=== PATIENT | female | born 1990 | race Caucasian/White ===

== ENCOUNTER 2023-08-01 11:07 | Outpatient (RCR) | payer OTHER, SELFPAY | END 2023-08-01 23:59 | disposition home or self-care (01) | LOC: RPT 11:07 | PROVIDERS: ATTENDING PHYSICIAN Obstetrics & Gynecology; FAMILY PHYSICIAN Family Medicine | DX: N39.41 Urge incontinence (principal); N39.3 Stress incontinence (female) (male); M62.89 Other specified disorders of muscle; R39.15 Urgency of urination; Z73.6 Limitation of activities due to disability; M54.9 Dorsalgia, unspecified | CPT/HCPCS: 97162; 97530 ==

== ENCOUNTER 2023-09-18 10:24 | Outpatient (RCR) | payer OTHER, SELFPAY | END 2023-09-18 23:59 | disposition home or self-care (01) | LOC: RPT 10:24 | PROVIDERS: ATTENDING PHYSICIAN Obstetrics & Gynecology; FAMILY PHYSICIAN Family Medicine | DX: N39.41 Urge incontinence (principal); N39.3 Stress incontinence (female) (male); M62.89 Other specified disorders of muscle; R39.15 Urgency of urination; M54.9 Dorsalgia, unspecified | CPT/HCPCS: 97014; 97110; 97112; 97140; 97530 ==

== ENCOUNTER → 2024-04-04 09:58 | Outpatient (REF) | payer OTHER, SELFPAY | LOC: REG 09:58 | PROVIDERS: ATTENDING PHYSICIAN Obstetrics & Gynecology | DX: Z34.82 Encounter for supervision of other normal pregnancy, second trimester (principal) | CPT/HCPCS: 36415; 86850; 86900; 86901; J2790 ==

== ENCOUNTER 2024-06-12 16:04 | Observation (INO) | payer OTHER, SELFPAY ==
[2024-06-12 16:21] VITALS: BP 133/57; BMI 36.8
[2024-06-12 16:56] LABS: % Basophils 0.3 % (0-2); % Eosinophils 3.6 % (0-6); % Immature Granulocytes 1.5 % (0-0.5); % Monocytes 9.7 % (1.7-9.3); % Neutrophils 68.9 % (42.2-75.2); Absolute Eosinophils 0.5 10^3/uL (0-0.7); Absolute Immature Granulocytes 0.2 10^3/uL (0-0.05); Absolute Lymphocytes 2.1 10^3/uL (1.2-3.4); Absolute Monocytes 1.3 10^3/uL (0.1-0.6); Absolute Neutrophils 9.1 10^3/uL (1.4-6.5); Hematocrit 27.6 % (37.0-47.0); Hemoglobin 9.5 g/dL (12.0-16.0); Mean Corp Hgb Conc. 34.4 g/dL (33.0-37.0); Mean Corpuscular Hgb 29.6 pg (27.0-31.0); Mean Platelet Volume 10.2 fL (7.4-10.4); Nucleated Red Blood Cells % 0 %; Platelet Count 211 10^3/uL (130-400); Red Blood Cell Count 3.21 10^6/uL (4.20-5.40); White Blood Cell Count 13.2 10^3/uL (4.8-10.8)
[2024-06-12 17:04] LABS: ALT (SGPT) 19 U/L (0-35); AST (SGOT) 21 U/L (14-36); Albumin 3.5 g/dl (3.5-5.0); Alkaline Phosphatase 126 U/L (38-126); Blood Urea Nitrogen 7 mg/dl (7-17); Calcium 9.6 mg/dl (8.4-10.2); Carbon Dioxide 23 mmol/L (22-30); Chloride 107 mmol/L (98-107); Estimated Creatinine Clearance > 125 ml/min; Glucose 89 mg/dl (70-99); Potassium 3.1 mmol/L (3.5-5.1); Sodium 137 mmol/L (135-145); Total Bilirubin 0.4 mg/dl (0.2-1.3); Total Protein 5.9 g/dl (6.3-8.2); Uric Acid 3.8 mg/dl (2.5-6.2); eGFR > 60.00
[2024-06-12 17:07] LABS: Urine Albumin Negative (Neg - Trace); Urine Bilirubin Negative (Negative); Urine Character Clear (Clear); Urine Color Yellow; Urine Glucose Negative (Negative); Urine Ketone Negative (Negative); Urine Leukocyte Negative (Negative); Urine Nitrite Negative (Negative); Urine Occult Blood Negative (Negative); Urine Specific Gravity 1.005 (<1.030); Urine Urobilinogen Negative (Neg - 1+)
[2024-06-12 17:16] LABS: Protein/creatinine Ratio 1.6; Urine Protein 16 mg/dl
== END 2024-06-12 19:08 | disposition home or self-care (01) ==
LOC: LDRP 16:04
PROVIDERS: Student in an Organized Health Care Education/Training Program; ADMITTING PHYSICIAN Obstetrics & Gynecology; FAMILY PHYSICIAN Family Medicine
DX: O26.893 Other specified pregnancy related conditions, third trimester (principal); R03.0 Elevated blood-pressure reading, without diagnosis of hypertension; Z3A.36 36 weeks gestation of pregnancy
CPT/HCPCS: 76815; 80053; 81003; 82570; 84156; 84550; 85025; 86850; 86870; 86900; 86901; G0378

== ENCOUNTER 2024-07-03 17:45 | Inpatient (IN) | payer OTHER, SELFPAY ==
[2024-07-03] MEDS: LR 1000 IV (18:00)
[2024-07-03 18:08] VITALS: BP 126/69; BMI 36.8
[2024-07-03 18:38] LABS: % Basophils 0.4 % (0-2); % Eosinophils 2.3 % (0-6); % Immature Granulocytes 1.1 % (0-0.5); % Lymphocytes 16.3 % (20.5-51.1); % Monocytes 8.9 % (1.7-9.3); Absolute Basophils 0.1 10^3/uL (0-0.2); Absolute Eosinophils 0.3 10^3/uL (0-0.7); Absolute Immature Granulocytes 0.2 10^3/uL (0-0.05); Absolute Lymphocytes 2.1 10^3/uL (1.2-3.4); Absolute Monocytes 1.2 10^3/uL (0.1-0.6); Absolute Neutrophils 9.3 10^3/uL (1.4-6.5); Hematocrit 30.7 % (37.0-47.0); Hemoglobin 10.6 g/dL (12.0-16.0); Mean Corp Hgb Conc. 34.5 g/dL (33.0-37.0); Mean Corpuscular Hgb 29.8 pg (27.0-31.0); Mean Corpuscular Volume 86.2 fL (81.0-99.0); Nucleated Red Blood Cells % 0 %; Platelet Count 236 10^3/uL (130-400); Red Blood Cell Count 3.56 10^6/uL (4.20-5.40); Red Cell Dist. Width 15.3 % (11.5-14.5); White Blood Cell Count 13.1 10^3/uL (4.8-10.8)
[2024-07-03 19:34] LABS: ALT (SGPT) 17 U/L (0-35); AST (SGOT) 21 U/L (14-36); Albumin 3.7 g/dl (3.5-5.0); Alkaline Phosphatase 153 U/L (38-126); Blood Urea Nitrogen 6 mg/dl (7-17); Calcium 9.5 mg/dl (8.4-10.2); Carbon Dioxide 21 mmol/L (22-30); Chloride 110 mmol/L (98-107); Estimated Creatinine Clearance > 125 ml/min; Glucose 86 mg/dl (70-99); Potassium 3.5 mmol/L (3.5-5.1); Sodium 138 mmol/L (135-145); Total Bilirubin 0.3 mg/dl (0.2-1.3); Total Protein 6.1 g/dl (6.3-8.2); eGFR > 60.00
[2024-07-03] MEDS: CYTOTEC 25 MICROGRAM VAG (20:05)
[2024-07-03 20:45] LABS: Protein/creatinine Ratio 0.6; Urine Protein 17 mg/dl
[2024-07-04] MEDS: CYTOTEC 50 MICROGRAM PO ×2 (00:24→05:25)
[2024-07-04] MEDS: LR 1000 IV ×2 (00:55→09:29)
[2024-07-04] MEDS: PENICILLIN 110 UNITS IV (00:55)
[2024-07-04] MEDS: STADOL 1 MG IV (03:30)
[2024-07-04] MEDS: PENICILLIN 55 UNITS IV ×4 (05:42→17:30)
[2024-07-04] MEDS: PITOCIN 30 UNITS/NSS 500 ML IV (09:29)
[2024-07-04] MEDS: CYTOTEC PO ×4 (09:37→22:14)
[2024-07-04] MEDS: FENTANYL/BUPIVACAINE 100 EPIDURAL (11:30)
[2024-07-04] MEDS: SUBLIMAZE 100 MCG EPIDURAL (11:30)
[2024-07-04] MEDS: ANCEF 10 IV (20:01)
[2024-07-04] MEDS: TYLENOL 1000 MG PO (20:01)
[2024-07-04] MEDS: BICITRA 30 ML PO (20:01)
[2024-07-04] MEDS: ZITHROMAX INFUSION 250 IV (20:03)
--- NOTE | 2024-07-04 22:07 | OR.RPT ---
Operative Report
Operative Report
Date of procedure: 07/04/2024
Preop diagnosis: IUP @39.1, brow presentation, PEC w/o SF
Postop diagnosis: same, intraop hemorrhage
Procedure: Primary low transverse section
Surgeon: Marybeth
Anesthesia: Epidural, Dr. Frost
QBL: 1350mL
Findings: viable female born at 2016, Apgars 7/8, normal appearing bilateral fallopian tubes and ovaries, extension inferior on the right side of the hysterotomy- hemostatic after repair. TXA given for increased bleeding from the hysterotomy
during repair.
Complications: none
Indication: Patient is a 34yo @39.1 who presented to Labor and Delivery with elevated blood pressures. Patient met criteria for preeclampsia without severe features. Her induction was started with Cytotec. She received two doses of Cytotec.
In the morning, patient was started on Pitocin. She was artificially ruptured for clear fluid around 1345. At 1945, patient was reporting increased pressure. She was examined and found to complete and +1 with brow presentation. Attempted to rotate
head without success. Recommendation was made to proceed with primary section. Risks, benefits and alternatives discussed including bleeding, infection, damage to surrounding structures and need for future operations. Consents signed.
Anesthesia notified of need to proceed with urgent . Ancef and azithromycin ordered for antibiotic prophylaxis.
Procedure: Patient was taken to the operating room where epidural anesthesia was bolused and found to be adequate. 2g of Ancef and 500mg of Azithromycin were given for antibiotic prophylaxis. The abdomen was prepped with ChloraPrep. The patient was
draped in the normal sterile fashion. She was placed in the dorsal supine position with a left lateral tilt. A Pfannenstiel incision was made with a 10 blade and carried down to the fascia with a scalpel. Hemostasis achieved with Bovie. The fascia
was incised and dissected laterally with Porras scissors. The superior aspect of the fascia was grasped with Chemo clamps. The underlying rectus fascia was sharply dissected with Porras scissors. In a similar fashion the inferior aspect of the fascia
was elevated with Chemo clamps and the rectus muscle was dissected off with Porras scissors. The rectus muscles were down the midline to the level of the pubic symphysis with manual dissection. The peritoneum was bluntly entered and
extended using manual traction.
Sterling retractor and bladder blade were placed revealing good visualization of the bladder. The vesicouterine peritoneum was identified. A thin lower uterine segment was noted. The lower uterine segment was incised with a scalpel. Clear fluid
and umbilical cord noted at entry. The uterine incision was extended bluntly with lateral and upward traction.
The fetus was in brow presentation. The head was elevated out of the pelvis with special attention paid to avoid using the uterine incision as a fulcrum. Gentle fundal pressure was applied once the head was brought to the incision and the head
delivered through the hysterotomy. The rest of the infant delivered without difficulty. Delayed cord clamping was performed. The was handed off to the surgical instrument repair specialist. IV oxytocin was started to facilitate uterine contractions. The placenta was
delivered with fundal massage and gentle downward traction. The uterus was exteriorized. Allis clamps were placed at the apices of the hysterotomy. The inside of the uterus was wiped with a lap sponge to assure complete removal of placental
membranes. Fundal massage was performed and uterus was firm. There was an extension inferior on the right side of the hysterotomy. The extension was repaired with 0 Vicryl in a running locked fashion. The uterine incision was closed with 0 Vicryl in
a running locked fashion. A horizontal imbricating stitch was done on the hysterotomy with 0 Vicryl. There was oozing along the hysterotomy and figure of eights were placed with 0 Vicryl to achieve hemostasis. Tranexamic acid was given for increased
bleeding along the hysterotomy. Bovie cautery was used on oozing areas of the serosa. The hysterotomy was inspected and noted to be hemostatic. The uterus was placed back in the abdomen. Blood clots and fluid were wiped out of the abdomen and pelvis
with moist laparotomy sponges. The hysterotomy was inspected again and was hemostatic.
The rectus muscles were inspected and were hemostatic. The fascial layer was closed in a running continuous fashion using 0 Vicryl. The subcutaneous tissue was copiously irrigated and any small bleeding vessels were cauterized with Bovie cautery.
The subcutaneous tissue was reapproximated in a running continuous fashion with 2-0 Plain. The skin was closed with 4-0 Vicryl in a subcuticular fashion and covered with skin glue. The patient tolerated the procedure well. All sponge and instrument
counts were correct times two. The patient was taken to the recovery room in stable condition. Dumont catheter was draining clear urine at the end of the procedure.
[2024-07-04] MEDS: PENICILLIN IV (22:14)
--- NOTE | 2024-07-04 23:13 | HPS.HSE ---
Family Physician
-
Family Physician: Mery Ferguson
Chief Complaint
-
induction of labor
History of Present Illness
HPI: Patient is a 34yo @39.1 who presented to Labor and Delivery on 07/03 from the office with elevated blood pressures. She met criteria for preeclampsia without severe features. Her induction of labor was started with Cytotec. She had no
complaints on admission.
complications:
- BMI 32
- Rh negative
- GBS positive
- Gestational hypertension
PMHx: BMI 32, anxiety
Meds: PNV, albuterol prn
Surghx: denies
NKDA
Socialhx: denies tobacco, etoh, or illicit drug use
Famhx: Mom & MGM- Breast CA Pat Aunt- Lung CA
OBHx: SVDx1
labs: A neg/ Ab neg/RI/RPR Nr/Ucx NG/Hbsag Neg/HIV Neg/Gc-Ct neg/Hep C neg/GBS +/1hr 154/ 3hr nml.
Medical History
Past Medical History
Past Medical History: Reports Psychiatric
Additional Past Medical History:
anxiety
Past Surgical History: Reports None
Social History
Tobacco: Non-smoker
Alcohol: None
Drug: None
Family History
Family History: Other
Allergies / Home Medications
Allergies reflects when Allergies were last updated in [facility].
Home Medications with original date entered in [facility]
Allergy/Medication List:
Meds: PNV, albuterol prn
NKDA
Review of Systems
-
A 12 point ROS was completed and negative except as noted: Yes
Physical Exam
Vital Signs
Vital Signs
Temp Pulse Resp BP
97.9 F 94 18 126/69
07/03/24 18:08 07/03/24 18:08 07/03/24 18:08 07/03/24 18:08
Physical Exam
General: Well Developed and Well Nourished
HEENT: NormoCephalic
Respiratory: Non Labored Respirations
Cardiac: Regular Rhythm
Skin: Warm and Dry
Neuro: Awake and Alert
Psych: Calm
Laboratory Results
-
07/03/24 18:24
07/03/24 19:13
Laboratory Results
Total Bilirubin 0.3 mg/dl (0.2-1.3) 07/03/24 19:13
AST 21 U/L (14-36) 07/03/24 19:13
ALT 17 U/L (0-35) 07/03/24 19:13
Alkaline Phosphatase 153 U/L (38-126) H 07/03/24 19:13
Impression/Plan
-
IMPRESSION:
Patient is a 34yo @39.1 admitted for IOL for PEC w/o SF, now plan to proceed with primary section for brow presentation
PLAN:
- Patient was found to complete and +1 with brow presentation. Attempted to rotate head without success. Recommendation was made to proceed with primary section. Risks, benefits and alternatives discussed including bleeding,
infection, damage to surrounding structures and need for future operations. Consents signed. Anesthesia notified of need to proceed with urgent . Ancef and azithromycin ordered for antibiotic prophylaxis.
[2024-07-05] MEDS: TORADOL 15 MG IV ×4 (02:55→20:57)
[2024-07-05 06:18] LABS: Hematocrit 24.9 % (37.0-47.0); Hemoglobin 8.6 g/dL (12.0-16.0); Mean Corp Hgb Conc. 34.5 g/dL (33.0-37.0); Mean Corpuscular Hgb 29.9 pg (27.0-31.0); Mean Corpuscular Volume 86.5 fL (81.0-99.0); Mean Platelet Volume 10.1 fL (7.4-10.4); Platelet Count 195 10^3/uL (130-400); Red Blood Cell Count 2.88 10^6/uL (4.20-5.40); Red Cell Dist. Width 15.3 % (11.5-14.5); White Blood Cell Count 15.2 10^3/uL (4.8-10.8)
--- NOTE | 2024-07-05 12:33 | W.PN.ANS.POP ---
Anesthesia Post Operative
- Anesthesia Post Op Note
Vital Signs Stable-See Nursing Note: Yes
Airway Patent: Yes
Adequate Pain Control: Yes
Change in Mental Status: No
Current Postoperative Nausea & Vomiting: No
Anesthesia Complications: No
General Anesthetic Recall: No
Unplanned Admission: No
Post Op Hydration Adequate: Yes
[2024-07-05] MEDS: MYLICON 80 MG PO (13:07)
[2024-07-05] MEDS: FEOSOL 325 MG PO (13:07)
[2024-07-05] MEDS: PRENATAL PLUS PO (16:37)
[2024-07-05] MEDS: RHOGAM 300 MCG IM (16:37)
[2024-07-06] MEDS: MOTRIN 600 MG PO (03:33)
[2024-07-06] MEDS: PRENATAL PLUS 1 TABLET PO (08:58)
[2024-07-06] MEDS: FEOSOL 325 MG PO (08:58)
[2024-07-06] MEDS: SENOKOT-S 1 TABLET PO (08:58)
[2024-07-08 13:34] LABS: Syphilis/T. pallidum Ab Reflex Negative (Negative)
== END 2024-07-06 14:14 | disposition home or self-care (01) | DRG 788 ==
LOC: LDRP 17:45
PROVIDERS: Student in an Organized Health Care Education/Training Program; ADMITTING PHYSICIAN Obstetrics & Gynecology; FAMILY PHYSICIAN Obstetrics & Gynecology
PROC: 10D00Z1 Extraction of Products of Conception, Low, Open Approach (ICD-10-PCS; 2024-07-04)
PROC: 3E0234Z Introduction of Serum, Toxoid and Vaccine into Muscle, Percutaneous Approach (ICD-10-PCS; 2024-07-05)
DX: O64.3XX0 Obstructed labor due to brow presentation, not applicable or unspecified (principal); Z3A.39 39 weeks gestation of pregnancy; Z37.0 Single live birth; O99.824 Streptococcus B carrier state complicating childbirth; O14.04 Mild to moderate pre-eclampsia, complicating childbirth
CPT/HCPCS: 80053; 82570; 84156; 85025; 85027; 85461; 86780; 86850; 86900; 86901; J2790

== ENCOUNTER 2024-07-10 22:37 | Observation (INO) | payer OTHER, SELFPAY ==
[2024-07-10 23:03] VITALS: BP 131/62; BMI 36.8
[2024-07-10 23:41] LABS: Hematocrit 26.8 % (37.0-47.0); Mean Corp Hgb Conc. 33.6 g/dL (33.0-37.0); Mean Corpuscular Volume 89.3 fL (81.0-99.0); Mean Platelet Volume 9.4 fL (7.4-10.4); Platelet Count 284 10^3/uL (130-400); Red Cell Dist. Width 15.8 % (11.5-14.5); White Blood Cell Count 9.8 10^3/uL (4.8-10.8)
[2024-07-10 23:54] LABS: ALT (SGPT) 39 U/L (0-35); AST (SGOT) 24 U/L (14-36); Albumin 3.4 g/dl (3.5-5.0); Alkaline Phosphatase 114 U/L (38-126); Blood Urea Nitrogen 12 mg/dl (7-17); Calcium 9.4 mg/dl (8.4-10.2); Carbon Dioxide 25 mmol/L (22-30); Chloride 109 mmol/L (98-107); Estimated Creatinine Clearance > 125 ml/min; Glucose 105 mg/dl (70-99); Potassium 3.8 mmol/L (3.5-5.1); Sodium 141 mmol/L (135-145); Total Bilirubin 0.2 mg/dl (0.2-1.3); Total Protein 5.8 g/dl (6.3-8.2); eGFR > 60.00
== END 2024-07-11 02:05 | disposition home or self-care (01) ==
LOC: LDRP 22:37
PROVIDERS: ADMITTING PHYSICIAN Student in an Organized Health Care Education/Training Program
DX: O14.05 Mild to moderate pre-eclampsia, complicating the puerperium (principal)
CPT/HCPCS: 80053; 85027; G0378